=== PATIENT | female | born 1990 | race Caucasian/White ===

== ENCOUNTER 2016-08-03 16:13 | Emergency (ER) | payer OTHER ==
[~2016-08-03] VITALS: Ht 160 cm; Wt 63.9 kg
[~2016-08-03 16:13] MED LIST: ALPR-411 PO; CLR10 PO; HYOS0.1255 PO; LEVO1IUD INT UTER; SUMA50TA15 PO
[2016-08-03 16:19] VITALS: TEMP 36.6; Ht 160 cm; Wt 63.9 kg
[2016-08-03] MEDS ORDERED: FEXO1TAB58 PO (17:23)
[2016-08-03] MEDS ORDERED: SULF800T23 PO (17:24)
[2016-08-03] MEDS ORDERED: MICO2CRE48 NAE (17:24)
[2016-08-03] MEDS ORDERED: SODIUM CHLORIDE 0.9% 1000ML 1,000 ML IV STA (17:28)
[2016-08-03] MEDS ORDERED: ONDANSETRON INJ 2 MG/ML 2 ML VIAL IV STA (17:28)
[2016-08-03 17:57] LABS: HEMATOCRIT 40.3 % (37-47); MEAN CELL VOLUME 85.6 fL (80-100); MEAN CORPUSCULAR HGB CONC 36.2 g/dl (32-36); MEAN PLATELET VOLUME 10.9 fL (7.4-10.4); PLATELET COUNT 192 K/uL (130-400); RED BLOOD COUNT 4.71 M/uL (4.2-5.4); WHITE BLOOD COUNT 8.13 K/uL (4.8-10.8)
[2016-08-03] MEDS: MoRPHine SULFATE 4 MG/ML 1 ML CARP\\VIAL IV PRN ×2 (17:57→19:00)
[2016-08-03 18:08] LABS: PARTIAL THROMBOPLASTIN RATIO 1.1; PROTHROMBIN TIME (PATIENT) 10.2 SECONDS (9.0-12.0)
[2016-08-03] MEDS ORDERED: XYLOCAINE 1%/SOD BICARB 20 ML VIAL INFIL ONE (18:08)
[2016-08-03 18:15] LABS: ALT/SGPT 41 U/L (12-78); AST/SGOT 20 U/L (15-37); BLOOD UREA NITROGEN 6 mg/dl (7-18); BUN/CREATININE RATIO 7.2 (10-20); CALCIUM 8.7 mg/dl (8.5-10.1); CARBON DIOXIDE 26 mmol/L (21-32); CHLORIDE 108 mmol/L (98-107); CREATININE 0.77 mg/dl (0.60-1.20); GLUCOSE 81 mg/dl (70-99); POTASSIUM 3.6 mmol/L (3.5-5.1); SODIUM 141 mmol/L (136-145)
[2016-08-03 18:16] LABS: BASO % 0.1 %; BASO ABS # 0.01 K/uL (0-0.2); COMPLETE YES; EOS % 0.7 %; IG% 0.1 %; LYMPH % 28.4 %; LYMPH ABS # 2.31 K/uL (1.2-3.4); MONO % 7.7 %
[2016-08-03 18:20] LABS: ALKALINE PHOSPHATASE 91 U/L (45-117); C-REACTIVE PROTEIN < 0.29 mg/dl (0-0.29)
[2016-08-03 18:43] LABS: CSF CHEMISTRY TUBE # 2
[2016-08-03 18:47] LABS: CSF APPEARANCE CLEAR; CSF COLOR COLORLESS; CSF XANTHOCHROMIC NO XANTHOCHROMIA
[2016-08-03 18:49] LABS: CSF TOTAL PROTEIN 51.9 mg/dl (15.0-45.0)
--- NOTE | 2016-08-03 18:49 | DIAGNOSTIC IMAGING REPORT ---
HEAD CT NONCONTRAST CT DOSE: 537.48 mGy.cm HISTORY: Mental status change achiness all over, headache TECHNIQUE: Multiaxial CT images of the head were performed without the use of intravenous contrast. Comparison: None. Findings: The paranasal sinuses and mastoid air cells are clear. The calvarium and skull base are intact. The ventricles and sulci are within normal limits. There is no mass, hematoma, midline shift, or acute infarct. Impression: No acute intracranial abnormality. Electronically signed by: Christopher Bailey M.D. 08/03/2016 6:47 PM Dictated Date/Time: 08/03/2016 6:47 PM
[2016-08-03 18:52] LABS: LYME DISEASE AB IGG NEG (NEG); LYME DISEASE AB IGM NEG (NEG)
--- NOTE | 2016-08-03 19:22 | DIAGNOSTIC IMAGING REPORT ---
CHEST ONE VIEW PORTABLE CLINICAL HISTORY: Evaluate Fever/Sepsis COMPARISON STUDY: No previous studies for comparison. FINDINGS: The bones soft tissues and hemidiaphragms are normal. The cardiomediastinal silhouette is normal. The lungs are clear. The pulmonary vasculature is normal. IMPRESSION: Negative chest. Electronically signed by: Christopher Bailey M.D. 08/03/2016 7:21 PM Dictated Date/Time: 08/03/2016 7:21 PM
--- NOTE | 2016-08-03 19:31 | EMERGENCY ROOM VISIT NOTE ---
History Report prepared by Radha: Iván Kennedy Under the Supervision of: Dr. Maulik Russell D.O. First contact with patient: 17:23 Chief Complaint: PAIN (GENERALIZED) Stated Complaint: HEADACHE, LEG AND ARM PAIN, STIFF NECK History of Present Illness The patient is a 26 year old female who presents to the Emergency Room with complaints of a constant headache beginning two days prior to arrival. She currently rates her discomfort as a 9/10 in severity. The patient associates light sensitivity, stiff neck, and generalized pain in her arms and legs with today's symptoms. She notes she has been treated for an ongoing infection since June 12. The patient states she has been on three antibiotics, and is most recently on Bactrim for a Staph infection in her nose for the past 2 days. She notes her nose had sores, and they were swabbed for the culture. The patient states her symptoms began since she began taking her medication. She notes her medical provider at [facility] referred the patient to the ED for further evaluation for meningitis. The patient denies a fever and previous back surgeries. 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 A total of 10 systems reviewed and were otherwise negative. Past Medical & Surgical Medical Problems: (1) No pertinent past medical history Family History Patient reports no known family medical history. 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 Current/Historical Medications Scheduled Alprazolam (Xanax), 0.5 MG PO prn Fexofenadine-Pseudoephedrine (Caroline-D 24 Hour Allergy), 1 TAB PO DAILY Miconazole Nitrate Vaginal (Miconazole), 1 DOSE TIAN TID Sulfa/Trimethoprim (Bactrim Ds 800MG/160MG), 1 TAB PO BID Sumatriptan Succinate (Imitrex), 50 MG PO PRN Scheduled PRN Hyoscyamine Sulfate (Levsin), 1 TAB PO TID PRN for prn Miscellaneous Medications Levonorgestrel (Iud) (Debora), 1 UNIT INT UTER Allergies Coded Allergies: Amoxicillin (Verified Allergy, Mild, rash, 08/03/16) Physical Exam Vital Signs Date Time Temp Pulse Resp B/P Pulse Ox O2 Delivery O2 Flow Rate FiO2 08/03/16 19:00 76 20 108/73 99 Room Air 08/03/16 18:02 78 20 112/61 100 08/03/16 16:19 36.6 81 18 127/82 96 Room Air Physical Exam CONSTITUTIONAL/VITAL SIGNS: Reviewed / noted above. GENERAL: Non-toxic in appearance. INTEGUMENTARY: Warm, dry, and [place]. HEAD: Normocephalic. EYES: without scleral icterus or trauma. ENT/OROPHARYNX: clear and moist. LYMPHADENOPATHY/NECK: Is supple without lymphadenopathy or meningismus. RESPIRATORY: Lungs clear and equal. CARDIOVASCULAR: Regular rate and rhythm. GI/ABDOMEN: Soft and nontender. No organomegaly or pulsatile mass. No rebound or guarding. Normal bowel sounds. EXTREMITIES: Warm and well perfused. BACK: No CVA tenderness. NEUROLOGICAL: Intact without focal deficits. PSYCHIATRIC: normal affect. MUSCULOSKELETAL: Normally developed with good muscle tone. Medical Decision & Procedures ER Provider Diagnostic Interpretation: Radiology results as stated below per my review and radiologist interpretation: HEAD CT NONCONTRAST CT DOSE: 537.48 mGy.cm HISTORY: Mental status change achiness all over, headache TECHNIQUE: Multiaxial CT images of the head were performed without the use of intravenous contrast. Comparison: None. Findings: The paranasal sinuses and mastoid air cells are clear. The calvarium and skull base are intact. The ventricles and sulci are within normal limits. There is no mass, hematoma, midline shift, or acute infarct. Impression: No acute intracranial abnormality. Electronically signed by: Christopher Bailey M.D. 08/03/2016 6:47 PM CHEST ONE VIEW PORTABLE CLINICAL HISTORY: Evaluate Fever/Sepsis COMPARISON STUDY: No previous studies for comparison. FINDINGS: The bones soft tissues and hemidiaphragms are normal. The cardiomediastinal silhouette is normal. The lungs are clear. The pulmonary vasculature is normal. IMPRESSION: Negative chest. Electronically signed by: Christopher Bailey M.D. 08/03/2016 7:21 PM Laboratory Results 08/03/16 17:39 Red Blood Count 4.71, Mean Corpuscular Volume 85.6, Mean Corpuscular Hemoglobin 31.0, Mean Corpuscular Hemoglobin Concent 36.2, Mean Platelet Volume 10.9, Neutrophils (%) (Auto) 63.0, Lymphocytes (%) (Auto) 28.4, Monocytes (%) (Auto) 7.7, Eosinophils (%) (Auto) 0.7, Basophils (%) (Auto) 0.1, Neutrophils # (Auto) 5.11, Lymphocytes # (Auto) 2.31, Monocytes # (Auto) 0.63, Eosinophils # (Auto) 0.06, Basophils # (Auto) 0.01 08/03/16 17:39 Test 08/03/16 17:35 08/03/16 17:39 08/03/16 18:15 Influenza Type A Antigen Neg for Influ A (NEG) Influenza Type B Antigen Neg for Influ B (NEG) White Blood Count 8.13 K/uL (4.8-10.8) Red Blood Count 4.71 M/uL (4.2-5.4) Hemoglobin 14.6 g/dL (12.0-16.0) Hematocrit 40.3 % (37-47) Mean Corpuscular Volume 85.6 fL (80-100) Mean Corpuscular Hemoglobin 31.0 pg (25-34) Mean Corpuscular Hemoglobin Concent 36.2 g/dl (32-36) Platelet Count 192 K/uL (130-400) Mean Platelet Volume 10.9 fL (7.4-10.4) Neutrophils (%) (Auto) 63.0 % Lymphocytes (%) (Auto) 28.4 % Monocytes (%) (Auto) 7.7 % Eosinophils (%) (Auto) 0.7 % Basophils (%) (Auto) 0.1 % Neutrophils # (Auto) 5.11 K/uL (1.4-6.5) Lymphocytes # (Auto) 2.31 K/uL (1.2-3.4) Monocytes # (Auto) 0.63 K/uL (0.11-0.59) Eosinophils # (Auto) 0.06 K/uL (0-0.5) Basophils # (Auto) 0.01 K/uL (0-0.2) RDW Standard Deviation 37.2 fL (36.4-46.3) RDW Coefficient of Variation 12.0 % (11.5-14.5) Immature Granulocyte % (Auto) 0.1 % Immature Granulocyte # (Auto) 0.01 K/uL (0.00-0.02) Erythrocyte Sedimentation Rate 3 mm/hr (0-21) Prothrombin Time 10.2 SECONDS (9.0-12.0) Prothromb Time International Ratio 1.0 (0.9-1.1) Activated Partial Thromboplast Time 27.8 SECONDS (21.0-31.0) Partial Thromboplastin Ratio 1.1 Anion Gap 7.0 mmol/L (3-11) Est Creatinine Clear Calc Drug Dose 97.9 ml/min Estimated GFR () 121.8 Estimated GFR (Non- 105.1 BUN/Creatinine Ratio 7.2 (10-20) Calcium Level 8.7 mg/dl (8.5-10.1) Total Bilirubin 0.5 mg/dl (0.2-1) Direct Bilirubin 0.1 mg/dl (0-0.2) Aspartate Amino Transf (AST/SGOT) 20 U/L (15-37) Alanine Aminotransferase (ALT/SGPT) 41 U/L (12-78) Alkaline Phosphatase 91 U/L (45-117) Total Creatine Kinase 47 U/L (26-192) Creatine Kinase MB < 0.5 ng/ml (0.5-3.6) Creatine Kinase MB Ratio (0-3.0) Troponin I < 0.015 ng/ml (0-0.045) C-Reactive Protein < 0.29 mg/dl (0-0.29) Total Protein 8.0 gm/dl (6.4-8.2) Albumin 4.4 gm/dl (3.4-5.0) Lyme Disease IgG Antibody NEG (NEG) Lyme Disease IgM Antibody NEG (NEG) CSF Color COLORLESS CSF Appearance CLEAR CSF WBC 1 /uL (0-5) CSF RBC 8 /uL (0) CSF Xanthrochromic NO XANTHOCHROMIA CSF Cell Count Tube # 4 CSF Chemistry Tube # 2 CSF Glucose 48 mg/dl (40-70) CSF Total Protein 51.9 mg/dl (15.0-45.0) Laboratory results as stated above per my review. Medications Administered Medications (Trade) Dose Ordered Sig/Stefania Route Start Time Stop Time Status Last Admin Dose Admin Sodium Chloride (Nss 1000ml) 1,000 ml @ 999 mls/hr Q1H1M STAT IV 08/03/16 17:28 08/03/16 18:28 DC 08/03/16 17:28 999 MLS/HR Morphine Sulfate (MoRPHine SULFATE INJ) 4 mg Q1H PRN IV 08/03/16 17:30 08/17/16 17:29 08/03/16 19:00 4 MG Ondansetron HCl (Zofran Inj) 4 mg NOW STAT IV 08/03/16 17:28 08/03/16 17:31 DC 08/03/16 17:57 4 MG Procedure Lumbar Puncture Indication: headache, rule out meningitis. Verbal consent was obtained after the risks and benefits were explained, including but not limited to headache, bleeding/clotting, scarring, infection, pain, and bone/joint/nerve damage. At this time, the risks of the procedure are less than the risks of NOT performing the procedure. A time out was taken and the correct patient and site identified. The patient was placed in the left recumbent position and the back was prepped with betadine and draped in the standard fashion. The L3 intervertebral space was identified, anesthetized locally with 1% lidocaine without epinephrine, and the spinal needle was inserted through the skin with the bevel parallel to the dural fibers. The needle was carefully advanced into the lumbar cistern and 4 tubes of clear CSF was obtained. The stylet was replaced and the needle was removed. A bandaid was placed and the patient was placed in the supine position. The patient tolerated the procedure well and there were no complications. ED Course 1725: Previous medical records were reviewed. The patient was evaluated in room C5. A complete history and physical examination was performed. 1728: Ordered Zofran Inj 4 mg IV, Sodium Chloride 1,000 ml @ 999 mls/hr IV. 1730: Ordered Morphine Sulfate 4 mg IV. 1933: On reevaluation, the patient is doing well. I discussed the results and findings with the patient. She verbalized agreement of the treatment plan. The patient was discharged home. Medical Decision Differential includes viral illness, influenza, streptococcal pharyngitis, meningitis, pneumonia, sinusitis, UTI, pyelonephritis, otitis media. This is a 26-year-old female who presents to the ED with a chief complaint of headache, light sensitivity and achiness all over. The patient states that her symptoms started after starting Bactrim therapy 2 days ago for a positive nasal strep test that was resistant to common antibiotics. She been seeing [facility] for these symptoms. When she checked in with them today, she was referred here to be tested for meningitis. She denies having fevers. No nausea vomiting. She does report light sensitivity in addition a headache as well as some neck discomfort. Her vital signs here are normal. She is afebrile. She is not tachycardic. Exam did not reveal any obvious abnormalities. She has no meningismus. Lungs are clear. She does report the above symptoms. Chest x-ray was negative for acute disease. CT scan of the brain was negative for acute disease. CBC is normal. His sedimentation rate was 3. CRP was normal. Complete metabolic panel was normal. CSF did not show obvious infection. There was some red blood cells but this was likely related to a traumatic tap. Flu swab was negative. Lyme test was negative. The patient was treated with IV morphine and IV fluids. She was told the results of the test. She is felt to be stable for discharge and outpatient follow-up. She was told if she felt her symptoms were related to the Bactrim, to discontinue the Bactrim and see if her symptoms improve. Impression Primary Impression: Aching headache Additional Impressions: Aching pain Ache in joint Aches Body aches Scribe Attestation The scribe's documentation has been prepared under my direction and personally reviewed by me in its entirety. I confirm that the note above accurately reflects all work, treatment, procedures, and medical decision making performed by me. Departure Information Dispostion Home / Self-Care Referrals [facility] (PCP) Forms HOME CARE DOCUMENTATION FORM, IMPORTANT VISIT INFORMATION, WORK / SCHOOL INSTRUCTIONS Patient Instructions My [facility] Additional Instructions Follow-up with your doctor for further care and evaluation in 1-5 days. Return to the emergency department for worsening or new symptoms or any concerns. You have been examined and treated today on an emergency basis only. This is not a substitute for, or an effort to provide, complete comprehensive medical care. It is impossible to recognize and treat all injuries or illnesses in a single emergency department visit. It is therefore important that you follow up closely with your doctor. Call as soon as possible for an appointment. Problem Qualifiers
[2016-08-03 19:50] VITALS: BP 140/72; PULSE 72; O2SAT 99
== END 2016-08-03 20:01 | disposition home or self-care (01) ==
LOC: C.EDB 16:14 → C.EDC 20:01
DX: R51 Headache (principal); M25.50 Pain in unspecified joint

== ENCOUNTER 2016-08-05 11:26 | Emergency (ER) | payer OTHER ==
[~2016-08-05] VITALS: Ht 160 cm; Wt 63.0 kg
[~2016-08-05 11:26] MED LIST changes: +FEXO1TAB58 PO; +MICO2CRE48 NAE; +SULF800T23 PO
[2016-08-05 11:49] VITALS: TEMP 36.8; Ht 160 cm; Wt 63.0 kg
[2016-08-05] MEDS ORDERED: SODIUM CHLORIDE 0.9% 1000ML 1,000 ML IV STA (12:56)
[2016-08-05 13:24] LABS: BASO % 0.6 %; BASO ABS # 0.03 K/uL (0-0.2); COMPLETE YES; EOS % 1.3 %; HEMATOCRIT 39.9 % (37-47); IG% 0.2 %; LYMPH ABS # 2.03 K/uL (1.2-3.4); MEAN CELL VOLUME 85.4 fL (80-100); MEAN CORPUSCULAR HGB CONC 36.3 g/dl (32-36); MEAN PLATELET VOLUME 10.9 fL (7.4-10.4); MONO % 7.5 %; NEUT % 51.4 %; PLATELET COUNT 183 K/uL (130-400); RED BLOOD COUNT 4.67 M/uL (4.2-5.4)
[2016-08-05] MEDS ORDERED: IBUP-103 PO (13:36)
[2016-08-05 13:38] LABS: PROTHROMBIN TIME (PATIENT) 10.5 SECONDS (9.0-12.0)
[2016-08-05 13:53] LABS: BUN/CREATININE RATIO 8.5 (10-20); CALCIUM 9.2 mg/dl (8.5-10.1); CREATININE 0.63 mg/dl (0.60-1.20); POTASSIUM 3.6 mmol/L (3.5-5.1)
[2016-08-05] MEDS ORDERED: CAFFEINE CITRATE 500 MG in NS 1000ML IV ONE (16:00)
[2016-08-05] MEDS ORDERED: COSYNTROPIN IV ONE (16:00)
[2016-08-05] MEDS ORDERED: PREGABALIN 75 MG CAP PO ONE (16:00)
--- NOTE | 2016-08-05 16:16 | Anesthesiology Progress Note ---
Anesthesia Progress Note Date of Service Aug 05, 2016. Progress Notes The patient is a 26 y/o female with no significant past medical history who presented to the ED today with Headache. I was called by the ER physician Dr. Mace to evaluate the patient for postdural puncture ARIAS. The patient was seen in the ED on 08/03/16 with a complaints of a constant ARIAS rating 9/10 in pain associated with light sensitivity, stiff neck, and generalized pain in her arms and legs. A lumbar puncture was performed at the time to evaluate for meningitis. The CSF came back with no signs of infection. The patient was on Bactrim at the time for a nasal staff infection and she believes her symptoms were due to Bactrim as they have resolved after it was discontinued. The patient states today that her current headache started yesterday morning and appears to be positional. She rates her pain with the ARIAS at a 6-8 while sitting or standing and states it mostly resolved with lying down. She has tried Advil for the pain, but stated it did not help. Per the patient, her headache starts in the R eye and gnosticism and moves across her forehead. She initially stated she had some light sensitivity, but then later stated that the light does not bother her. She denies any tinnitus, loss of hearing, numbness or weakness in her extremities, nausea or vomiting. She stated that she has been having trouble sleeping lately because she feels restless. 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 On exam, the patient was lying down in the stretcher in no acute distress with the lights off. She stated she had minimal discomfort. CN II- XII were grossly intact. Sensation to touch in all extremities was normal as was strength. She is afebrile and her vital signs are stable. When I had the patient stand up with the lights on she was able to converse and walk around the room comfortably. She stated she did not have much of a headache anymore and that she felt a lot better since when she first arrived to the ED. She did receive IL IV crystalloid while in the ED. I explained to the patient that she may have a postdural puncture headache and that the IV fluids have already made her feel better. I informed her that we could either try conservative management which included IV caffeine , PO pregabalin and IV cosyntropin as well as hydration or an epidural blood patch. At this time the patient stated that she is feeling better and would like to try conservative management. I have ordered pregabalin 75 mg PO, caffeine 500 mg IV and cosyntropin 0.5 mg IV to be given in the ED. I also informed the patient that she can take Ibuprofen and acetaminophen as needed for headache. I instructed her to drink plenty of fluids both with and without caffeine. I instructed the patient to come back to the ED tomorrow if she does not feel better or sooner if her symptoms worsen. She understands and agrees. I discussed my plan with Dr. Mace. A urine HCG was done and confirmed the patient was not prior to administering any medication. Per the ED nurse, the patient received her pregabalin and cosyntropin and her IV caffeine is infusing. She stated that patient is already feeling better. Dr. Mace will ensure the patient receives her discharge instructions.
[2016-08-05 17:24] VITALS: BP 112/72; PULSE 65; O2SAT 100
--- NOTE | 2016-08-05 18:04 | EMERGENCY ROOM VISIT NOTE ---
History Report prepared by Radha: Cornelio Olmstead Under the Supervision of: Dr. Modesto Mace D.O. First contact with patient: 12:55 Chief Complaint: HEADACHE Stated Complaint: SPINAL HEADACHE History of Present Illness The patient is a 26 year old female who presents to the Emergency Room with complaints of a headache that began yesterday morning. The patient received a lumbar puncture procedure earlier in the week to rule out meningitis. She states that whenever she stands she gets a horrible headache which goes away when she is lying flat. Patient denies any change in vision, fevers, chest pain , shortness of breath, nausea, vomiting, diarrhea, pain with urination, and melena. She has only taken Advil for the pain, but it has not helped. She notes that all of her symptoms have gone away with exception of a headache which is only present when sitting up. No weakness or numbness in arms or legs. Source of History: patient Onset: yesterday morning Position: head Quality: ache Timing: constant Modifying Factors (Worsening): other (standing) Modifying Factors (Relieving): rest (lying down) Associated Symptoms: No SOB, No abdominal pain, No chest pain, No cough, No diarrhea, No fevers, No melena, No nausea, No sorethroat, No urinary symptoms, No vomiting Review of Systems See HPI for pertinent positives & negatives. A total of 10 systems reviewed and were otherwise negative. Past Medical & Surgical Medical Problems: (1) No pertinent past medical history Family History Patient reports no known family medical history. Social History Smoking Status: Never Smoker Smokeless Tobacco Use: No Drug Use: none Marital Status: Housing Status: lives with significant other Occupation Status: [employer] Current/Historical Medications Scheduled Alprazolam (Xanax), 0.5 MG PO prn Fexofenadine-Pseudoephedrine (Caroline-D 24 Hour Allergy), 1 TAB PO DAILY Miconazole Nitrate Vaginal (Miconazole), 1 DOSE TIAN TID Sumatriptan Succinate (Imitrex), 50 MG PO PRN Scheduled PRN Hyoscyamine Sulfate (Levsin), 1 TAB PO TID PRN for prn Ibuprofen Tab (Advil), 200-600 MG PO Q4H PRN for Pain Miscellaneous Medications Levonorgestrel (Iud) (Debora), 1 UNIT INT UTER Allergies Coded Allergies: Amoxicillin (Verified Allergy, Mild, rash, 08/05/16) Sulfamethoxazole w/Trimethoprim (Unverified Adverse Reaction, Severe, HEADACH/FULL BODY PAIN, 08/05/16) Physical Exam Vital Signs Date Time Temp Pulse Resp B/P Pulse Ox O2 Delivery O2 Flow Rate FiO2 08/05/16 17:24 65 20 112/72 100 08/05/16 13:32 74 16 116/68 99 Room Air 08/05/16 11:49 36.8 85 18 133/86 98 Room Air Physical Exam GENERAL: Lying flat in bed, disheveled, alert, well appearing, well nourished, no distress, non-toxic EYE EXAM: normal conjunctiva, PERRL and EOM's intact OROPHARYNX: no exudate, no erythema, lips, buccal mucosa, and tongue normal and mucous membranes are moist NECK: supple, no nuchal rigidity, no adenopathy, non-tender LUNGS: Clear to auscultation. Normal chest wall mechanics HEART: no murmurs, S1 normal and S2 normal ABDOMEN: abdomen soft, non-tender, normo-active bowel sounds, no masses, no rebound or guarding. BACK: Back is symmetrical on inspection and there is no deformity, no midline tenderness, no CVA tenderness. SKIN: no rashes and no bruising UPPER EXTREMITIES: upper extremities are grossly normal. LOWER EXTREMITIES: No pitting edema. NEURO EXAM: Normal sensorium, cranial nerves II-XII intact, normal speech, no weakness of arms, no weakness of legs. No drift. Finger to nose intact. Sensation intact. Medical Decision & Procedures Laboratory Results 08/05/16 13:10 Red Blood Count 4.67, Mean Corpuscular Volume 85.4, Mean Corpuscular Hemoglobin 31.0, Mean Corpuscular Hemoglobin Concent 36.3, Mean Platelet Volume 10.9, Neutrophils (%) (Auto) 51.4, Lymphocytes (%) (Auto) 39.0, Monocytes (%) (Auto) 7.5, Eosinophils (%) (Auto) 1.3, Basophils (%) (Auto) 0.6, Neutrophils # (Auto) 2.67, Lymphocytes # (Auto) 2.03, Monocytes # (Auto) 0.39, Eosinophils # (Auto) 0.07, Basophils # (Auto) 0.03 08/05/16 13:10 Test 08/05/16 13:10 08/05/16 15:45 White Blood Count 5.20 K/uL (4.8-10.8) Red Blood Count 4.67 M/uL (4.2-5.4) Hemoglobin 14.5 g/dL (12.0-16.0) Hematocrit 39.9 % (37-47) Mean Corpuscular Volume 85.4 fL (80-100) Mean Corpuscular Hemoglobin 31.0 pg (25-34) Mean Corpuscular Hemoglobin Concent 36.3 g/dl (32-36) Platelet Count 183 K/uL (130-400) Mean Platelet Volume 10.9 fL (7.4-10.4) Neutrophils (%) (Auto) 51.4 % Lymphocytes (%) (Auto) 39.0 % Monocytes (%) (Auto) 7.5 % Eosinophils (%) (Auto) 1.3 % Basophils (%) (Auto) 0.6 % Neutrophils # (Auto) 2.67 K/uL (1.4-6.5) Lymphocytes # (Auto) 2.03 K/uL (1.2-3.4) Monocytes # (Auto) 0.39 K/uL (0.11-0.59) Eosinophils # (Auto) 0.07 K/uL (0-0.5) Basophils # (Auto) 0.03 K/uL (0-0.2) RDW Standard Deviation 37.3 fL (36.4-46.3) RDW Coefficient of Variation 12.1 % (11.5-14.5) Immature Granulocyte % (Auto) 0.2 % Immature Granulocyte # (Auto) 0.01 K/uL (0.00-0.02) Prothrombin Time 10.5 SECONDS (9.0-12.0) Prothromb Time International Ratio 1.0 (0.9-1.1) Anion Gap 10.0 mmol/L (3-11) Est Creatinine Clear Calc Drug Dose 118.9 ml/min Estimated GFR () 141.5 Estimated GFR (Non- 122.1 BUN/Creatinine Ratio 8.5 (10-20) Calcium Level 9.2 mg/dl (8.5-10.1) Urine Test NEG (NEG) Laboratory results per my review. Medications Administered Medications (Trade) Dose Ordered Sig/Stefania Route Start Time Stop Time Status Last Admin Dose Admin Sodium Chloride (Nss 1000ml) 1,000 ml @ 999 mls/hr Q1H1M STAT IV 08/05/16 12:56 08/05/16 13:56 DC 08/05/16 12:56 999 MLS/HR Pregabalin 75 mg 75 mg 1600 ONCE PO 08/05/16 16:00 08/05/16 16:01 DC 08/05/16 16:01 75 MG Caffeine Citrated 500 mg/Sodium Chloride 1,025 ml @ 2,050 mls/hr 1600 ONCE IV 08/05/16 16:00 08/05/16 16:29 DC 08/05/16 16:01 2,050 MLS/HR Cosyntropin/ Syringe (Cortrosyn Inj/ Syringe) 5 ml @ 2.5 mls/min 1600 ONCE IV 08/05/16 16:00 08/05/16 16:01 DC 08/05/16 16:02 2.5 MLS/MIN ED Course ED COURSE: Vital signs were reviewed and showed nothing abnormal. The patients medical record was reviewed The above diagnostic studies were performed and reviewed. ED treatments and interventions as stated above. 1255: The patient was evaluated in room B4. A complete history and physical examination was performed. 1256: Sodium Chloride 1000 ml @ 999 mls/hr IV 1550: The patient refused a blood patch. We will try medication instead. 1600: Cosyntropin 0.5 mg/Syringe 5 ml @ 2.5 mls/min IV, Caffeine Citrated 500 mg /Sodium Chloride 1025 ml @ 2050 mls/hr IV, Lyrica Cap 75 mg PO 1707: The patient is feeling better. 1730: Upon reevaluation, the patient is resting. I discussed my findings with the patient and she understands and agrees with the treatment plan. The patient remained stable while under my care. The patient appeared well at the time of discharge. Medical Decision Differential Diagnosis includes but is not limited to headache, tension headache , cluster headache, migraine, subarachnoid hemorrhage, meningitis, mass, central venous thrombus, concussion, trauma and epidural/subdural hemorrhage. Patient is a 18-year-old female who presents the ER for a headache which is only present when standing up. She had a lumbar puncture performed and notes that since then headache has only been present with sitting up. LP occurred on Saturday. She had extensive workup which was unremarkable for any bleed on CT or meningitis on LP. Labs including CBC, BMP, INR and urine are negative. Her symptoms have completely resolved with exception of a headache. Anesthesia was consulted for the post-LP blood patch. Patient eventually preferred to have medical treatment. She was given post-LP cocktail per anesthesia. She felt slightly better following this. She was ambulating without difficulty. Patient was completely neurologically intact and discharged follow-up with her primary care doctor. Discussed with Pt concerning signs and symptoms to watch out for. Pt was instructed to follow up with their PCP and discussed with the patient their option to return to the ED at anytime for persistent or worsening symptoms. The appropriate anticipatory guidance and out-patient management, including indications for return to the emergency department, were explained at length to the patient and understood. Impression Primary Impression: Post-lumbar puncture headache Scribe Attestation The scribe's documentation has been prepared under my direction and personally reviewed by me in its entirety. I confirm that the note above accurately reflects all work, treatment, procedures, and medical decision making performed by me. Departure Information Dispostion Home / Self-Care [facility] Forms HOME CARE DOCUMENTATION FORM, IMPORTANT VISIT INFORMATION Patient Instructions Lumbar Puncture Having, My [facility] Additional Instructions Please follow up with your primary care doctor or if you are a student [facility] with in the next 24 hours. Any worsening of your symptoms, please return to the ED immediately. This includes recurrence of a headache which worsens with sitting up, fevers greater than 100.4, confusion, weakness or numbness in arms or legs, or any other concerning signs or symptoms from your standpoint. Please stay as hydrated as possible. Please take Motrin or Tylenol as needed for pain. If symptoms recur or worsen please return for a blood patch.
== END 2016-08-05 17:42 | disposition home or self-care (01) ==
LOC: C.EDB 11:29
DX: G97.1 Other reaction to spinal and lumbar puncture (principal); Z79.899 Other long term (current) drug therapy

== ENCOUNTER 2016-08-06 14:01 | Day surgery (SDC) | payer OTHER ==
[~2016-08-06] VITALS: Ht 160 cm; Wt 64.0 kg
[~2016-08-06 14:01] MED LIST changes: -CLR10 PO; +IBUP-103 PO; -SULF800T23 PO
[2016-08-06 14:07] VITALS: BP 124/78; PULSE 79; TEMP 36.6; O2SAT 98; Ht 160 cm; Wt 64.0 kg
--- NOTE | 2016-08-06 14:58 | History and Physical ---
History & Physical Date Aug 06, 2016. History of Present Illness The patient is a 26 year old female with complaints of headache after LP on Saturday. Her headache is positional and has no red flag symptoms. She presented to the ED yesterday and chose conservative medical management over blood patch. Her headache persists today and she would like to proceed with blood patch. Past Medical/Surgical History Medical Problems: (1) No pertinent past medical history Additional History Bleeding Tendencies: No Infectious Diseases: No Allergies Coded Allergies: Amoxicillin (Verified Allergy, Mild, rash, 08/05/16) Sulfamethoxazole w/Trimethoprim (Verified Adverse Reaction, Severe, HEADACH/FULL BODY PAIN, 08/06/16) Home Medications Scheduled Alprazolam (Xanax), 0.5 MG PO prn Fexofenadine-Pseudoephedrine (Caroline-D 24 Hour Allergy), 1 TAB PO DAILY Miconazole Nitrate Vaginal (Miconazole), 1 DOSE TIAN TID Sumatriptan Succinate (Imitrex), 50 MG PO PRN Scheduled PRN Hyoscyamine Sulfate (Levsin), 1 TAB PO TID PRN for prn Ibuprofen Tab (Advil), 200-600 MG PO Q4H PRN for Pain Miscellaneous Medications Levonorgestrel (Iud) (Debora), 1 UNIT INT UTER Physical Examination Skin: warm/dry ENT: normal ENT inspection Head: normocephalic Respiratory/Chest: lungs clear, normal breath sounds Cardiovascular: regular rate, rhythm Back: normal inspection Extremities: normal inspection Neurologic/Psych: no motor/sensory deficits Diagnosis Post Dural Puncture Headache ASA Classification: ASA Class I Plan of Treatment Risks and benefits of Epidural Blood Patch discussed. Will proceed with patch.
[2016-08-06 15:40] VITALS: BP 112/67; PULSE 73; TEMP 36.9; O2SAT 98
--- NOTE | 2016-08-06 15:59 | Procedure Note ---
Procedure Note Date of Service Aug 06, 2016. Procedure Note Epidural Blood Patch Patient placed on monitors. No sedation given. Turned L lateral decubitus. Lumbar area was prepped and draped while L arm was also prepped and draped in a sterile fashion. Skin was anesthetized with 1% lidocaine and the epidural space was accessed with a 17G tuhoy needle at L3-4 by GEORGIE to saline, which corresponds to the previous needle hole from Saturday. After loss of resistance at 4.5cm, an mortgage loan assistant eda 20cc of blood through the L anticubital fossa. This was injected in to the epidural space without significant pain. The patient tolerated the procedure well. Her headache was immediately improved. I asked that she lay flat for at least 30 minutes following the procedure and she can then be discharged home. No blood loss, no complications noted.
--- NOTE | 2016-08-06 16:01 | Discharge Instructions ---
Discharge Instructions Date of Service Aug 06, 2016. Visit Reason for Visit: Headaches Discharge Discharge Diagnosis / Problem: Post Dural Puncture Headache Discharge Goals Goal(s): Decrease discomfort, Improve function Activity Recommendations Activity Limitations: resume your previous activity Anesthesia . Post Anesthesia Instructions: If you have had General Anesthesia or IV Sedation: * Do not drive today. * Resume driving when surgeon permits. * Do not make important decisions or sign legal documents today. * Call surgeon for: 1. Temperature elevations greater than 101 degrees F. 2. Uncontrollable pain. 3. Excessive bleeding. 4. Persistent nausea and vomiting. 5. Medication intolerance (nausea, vomiting or rash). * For nausea and vomiting use only clear liquids such as: tea, soda, bouillon until nausea subsides, then gradually increase diet as tolerated. * If you have any concerns or questions, call your surgeon's office. If physician is unavailable and it is an emergency, call 911 or go to the nearest emergency room. . Diet Recommendations Recommended Home Diet: no limitations Pending Studies Studies pending at discharge: no Medical Emergencies . Who to Call and When: Medical Emergencies: If at any time you feel your situation is an emergency, please call 911 immediately. . Non-Emergent Contact Non-Emergency issues call your: Primary Care Provider . . "Provider Documentation" section prepared by Ghassan Anders.
[2016-08-06 16:10] VITALS: BP 107/73; PULSE 78; TEMP 36.5; O2SAT 99
== END 2016-08-06 16:15 | disposition home or self-care (01) ==
LOC: C.ACU 14:01
PROVIDERS: ATTEND Anesthesiology
DX: G97.1 Other reaction to spinal and lumbar puncture (principal)